=== PATIENT | female | born 1985 | race Caucasian/White ===

== ENCOUNTER 2018-06-05 11:09 | Emergency (ER) | payer SELFPAY ==
[~2018-06-05] VITALS: Ht 167.6 cm; Wt 87.1 kg
[2018-06-05] MEDS ORDERED: HYDROCODONE/APAP 10MG-325MG TAB PO ONE (11:45)
[2018-06-05] MEDS ORDERED: DIAZEPAM 5 MG TAB PO ONE (11:55)
[2018-06-05 12:34] LABS: PREGNANCY TEST, URINE NEGATIVE (NEGATIVE)
[2018-06-05 12:39] LABS: BILIRUBIN,URINE NEGATIVE (NEGATIVE); CLARITY,URINE CLEAR (CLEAR); COLOR,URINE YELLOW (YELLOW); KETONES,URINE NEGATIVE (NEGATIVE); LEUKOCYTE ESTERASE ,URINE NEGATIVE (NEGATIVE); NITRITE,URINE NEGATIVE (NEGATIVE); PROTEIN,URINE DIPSTICK NEGATIVE (NEGATIVE); URINE UROBILINOGEN 0.2 mg/dL (0.2 - 1)
[2018-06-05 13:11] LABS: BACTERIA,URINE MODERATE /HPF; EPITHELIAL CELLS,URINE MANY /LPF
--- NOTE | 2018-06-05 14:19 | Diagnostic Imaging Report ---
Exam: Right AP pelvis and two-view hip History: Pain Comparison: None. Findings: No fracture. Soft tissue calcification at the anteroinferior iliac spine. Hip joint spaces maintained. Impression: No displaced fracture. Soft tissue calcification adjacent to the right anteroinferior iliac spine. Consider non emergency follow-up MRI of the hip to evaluate for rectus femoris injury. Signed by: Dr. Ruepsh Plunkett M.D. on 06/05/2018 2:16 PM
[2018-06-05 16:20] VITALS: BP 127/86
== END 2018-06-05 16:17 | disposition home or self-care (01) ==
LOC: ER 11:09
DX: M79.651 Pain in right thigh (principal); S76.111A Strain of right quadriceps muscle, fascia and tendon, initial encounter; R26.2 Difficulty in walking, not elsewhere classified; E03.9 Hypothyroidism, unspecified; F41.9 Anxiety disorder, unspecified; F17.210 Nicotine dependence, cigarettes, uncomplicated
CPT/HCPCS: 81001; 81025; 87086; 93971; 99284

== ENCOUNTER 2019-09-16 09:10 | Emergency (ER) | payer BC ==
[~2019-09-16] VITALS: Ht 167.6 cm; Wt 87.1 kg
--- OUTSIDE RECORDS SUMMARY | 2019-09-16 09:12 | XMS REPORT ---
[facility] [place] Address Unknown Phone Unavailable Care Team Providers Care Science Instructor Name Role Phone Zulema GUADARRAMA Unavailable Unavailable Problems This patient has no known problems. Allergies, Adverse Reactions, Alerts This patient has no known allergies or adverse reactions. Medications This patient has no known medications. Results Test Description Test Time Test Comments Text Results Atomic Results Result Comments HIP RIGHT 2-3 VW (+/- PELVIS) 2018-06-05 14:14:00 [place] [address] Patient Name: LUNA DEL RIO MR #: [id number] : 1985 Age/Sex: 33/F Req #: [id number] Adm Physician: Ordered by: SUMMER TY DIRECTOR OF EDUCATION AND TRAINING Report #: [id number] Location: ER Room/Bed: Procedure: [id number] DX/HIP RIGHT 2-3 VW (+/- PELVIS) Exam Date: Exam Time: REPORT STATUS: Signed Exam: Right AP pelvis and two-view hip History: Pain Comparison: None. Findings: No fracture. Soft tissue calcification at the anteroinferior iliac spine. Hip joint spaces maintained. Impression: No displaced fracture. Soft tissue calcification adjacent to the right anteroinferior iliac spine. Consider non emergency follow-up MRI of the hip to evaluate for rectus femoris injury. Signed by: Dr. Danilo Lee M.D. on 06/05/2018 2:16 PM Dictated By: DANILO LEE MD 15 Transcribed By: BLANCA on 06/05/181415 COPY TO: SUMMER TY NP
[2019-09-16] MEDS ORDERED: KETOROLAC TROMETHAMINE 60 MG/2 ML VIAL IM ONE (09:30)
[2019-09-16 09:54] LABS: PREGNANCY TEST, URINE NEGATIVE (NEGATIVE)
[2019-09-16 09:55] LABS: COLOR,URINE RED (YELLOW)
[2019-09-16 09:56] LABS: BILIRUBIN,URINE NEGATIVE (NEGATIVE); CLARITY,URINE CLOUDY (CLEAR); KETONES,URINE NEGATIVE (NEGATIVE); LEUKOCYTE ESTERASE ,URINE TRACE (NEGATIVE); NITRITE,URINE POSITIVE (NEGATIVE); PROTEIN,URINE DIPSTICK 3+ (NEGATIVE); URINE UROBILINOGEN 0.2 mg/dL (0.2 - 1)
[2019-09-16 10:15] LABS: BACTERIA,URINE FEW /HPF; EPITHELIAL CELLS,URINE FEW /LPF; RBC,URINE >50 /HPF (0-5); WBC,URINE (MAN) >50 /HPF (0-5)
[2019-09-16] MEDS ORDERED: MORPHINE SULFATE INJ 4 MG/ML INJ 1ML IM STA (10:20)
--- NOTE | 2019-09-16 11:13 | Diagnostic Imaging Report ---
EXAM: CT Abdomen and Pelvis WITHOUT intravenous contrast INDICATION: Abdominal pain, flank pain COMPARISON: None. TECHNIQUE: Abdomen and pelvis were scanned utilizing a multidetector helical scanner from the lung base to the pubic symphysis without administration of IV contrast. Coronal and sagittal reformations were obtained. IV CONTRAST: None ORAL CONTRAST: Water COMPLICATIONS: None RADIATION DOSE: Total DLP: 568 mGy*cm Dose modulation, iterative reconstruction, and/or weight based adjustment of the mA/kV was utilized to reduce the radiation dose to as low as reasonably achievable. FINDINGS: LOWER THORAX: Normal. HEPATOBILIARY: No focal hepatic lesions. No biliary ductal dilatation. The gallbladder appears unremarkable. SPLEEN: No splenomegaly. PANCREAS: No focal masses or ductal dilatation. ADRENALS: No adrenal nodules. KIDNEYS/URETERS: 6 mm nonobstructive right lower pole renal calculus. No left renal calculus. No hydronephrosis. PELVIC ORGANS/BLADDER: Unremarkable. PERITONEUM / RETROPERITONEUM: No free air or fluid. LYMPH NODES: No lymphadenopathy. VESSELS: Scattered atherosclerotic calcifications of the nonaneurysmal abdominal aorta. GI TRACT: No distention or wall thickening. Normal appendix. BONES AND SOFT TISSUES: No acute osseous injury. IMPRESSION: 6 mm nonobstructive right lower pole renal calculus. No hydronephrosis. Signed by: Anam Dolan MD on 09/16/2019 11:10 AM
== END 2019-09-16 11:30 | disposition home or self-care (01) ==
LOC: ER 09:10
DX: R30.0 Dysuria (principal); M54.5 Low back pain; R10.9 Unspecified abdominal pain; N30.91 Cystitis, unspecified with hematuria; N20.0 Calculus of kidney
CPT/HCPCS: 74176; 81001; 81025; 99283; J1885

== ENCOUNTER 2020-10-21 08:56 | Emergency (ER) | payer SELFPAY ==
[~2020-10-21] VITALS: Ht 167.6 cm; Wt 93.4 kg
[2020-10-21] MEDS ORDERED: KETOROLAC TROMETHAMINE 30 MG/ML VIAL IM STA (09:10)
[2020-10-21] MEDS ORDERED: DEXAMETHASONE 4 MG TAB PO STA (09:10)
[2020-10-21] MEDS ORDERED: ACETAMINOPHEN 325 MG TAB PO ONE (09:15)
[2020-10-21] MEDS ORDERED: TYLENOL # 31 EA PO (10:33)
== END 2020-10-21 11:03 | disposition home or self-care (01) ==
LOC: ER 09:28
DX: M25.511 Pain in right shoulder (principal); M75.31 Calcific tendinitis of right shoulder; E03.9 Hypothyroidism, unspecified; F41.9 Anxiety disorder, unspecified
CPT/HCPCS: 73030; 99283; J1885; J8540